=== PATIENT | female | born 1950 | race Caucasian/White ===

== ENCOUNTER → 2019-05-04 16:06 | Outpatient (CLI) | payer OTHER, SELFPAY ==
--- NOTE | ~2019-05-04 | MM_ITS ---
EXAMINATION: MM screening cris BI w mich HISTORY: Screening mammogram TECHNIQUE: Craniocaudal and mediolateral oblique 3-D tomosynthesis images were obtained and synthetic 2-D images were generated. CAD analysis was submitted and interpreted. COMPARISON: Comparison to multiple prior studies sequentially, with oldest reviewed study dated 10/2012. BREAST PARENCHYMAL COMPOSITION: The breasts are heterogeneously dense, which may obscure small masses . FINDINGS: There is no evidence of suspicious mass, calcification, or architectural distortion to sugg est malignancy in either breast. There has been no suspicious interval change. IMPRESSION: 1. No mammographic evidence of malignancy. 2. Recommend routine screening mammography in one year. BI-RADS Category 1: Negative Reviewed, dictated and finalized at location A. SEARCH MANAGER
== END ==
PROVIDERS: PCP Internal Medicine; Visit Provider Obstetrics & Gynecology
DX: Z12.31 Encounter for screening mammogram for malignant neoplasm of breast (principal)
CPT/HCPCS: 77063; 77067

== ENCOUNTER → 2020-07-04 15:41 | Outpatient (CLI) | payer OTHER, SELFPAY ==
--- NOTE | ~2020-07-04 | MM_ITS ---
EXAMINATION: MM screening cris BI w mich HISTORY: Screening mammogram TECHNIQUE: Craniocaudal and mediolateral oblique 3-D tomosynthesis images were obtained and synthetic 2-D images were generated. CAD analysis was submitted and interpreted. COMPARISON: 05/04/2019, 02/06/2018, 01/23/2017 bilateral digital screening mammogram examinations BREAST PARENCHYMAL COMPOSITION: The breasts are heterogeneously dense, which may obscure small masses . FINDINGS: There is no evidence of suspicious mass, calcification, or architectural distortion to sugg est malignancy in either breast. There has been no suspicious interval change. IMPRESSION: 1. No mammographic evidence of malignancy. 2. Recommend routine screening mammography in one year. BI-RADS Category 1: Negative Reviewed, dictated and finalized at location A.
== END ==
PROVIDERS: Visit Provider Obstetrics & Gynecology
DX: Z12.31 Encounter for screening mammogram for malignant neoplasm of breast (principal)
CPT/HCPCS: 77063; 77067

== ENCOUNTER → 2021-07-19 09:21 | Outpatient (CLI) | payer MEDICARE, SELFPAY ==
--- NOTE | ~2021-07-19 | MM_ITS ---
EXAMINATION: MM screening cris BI w mich HISTORY: Screening TECHNIQUE: Craniocaudal and mediolateral oblique 3-D tomosynthesis images were obtained and synthetic 2-D images were generated. CAD analysis was submitted and interpreted. COMPARISON: Comparison to multiple prior studies sequentially, with oldest reviewed study dated 04/2014. BREAST PARENCHYMAL COMPOSITION: The breasts are heterogenously dense, which may obscure small masses FINDINGS: There is no evidence of suspicious mass, calcification, or architectural distortion to sugg est malignancy in either breast. There has been no suspicious interval change. IMPRESSION: 1. No mammographic evidence of malignancy. 2. Recommend routine screening mammography in one year. BI-RADS Category 1: Negative Reviewed, dictated and finalized at location A.
== END ==
PROVIDERS: PCP Internal Medicine; Visit Provider Obstetrics & Gynecology
DX: Z12.31 Encounter for screening mammogram for malignant neoplasm of breast (principal)
CPT/HCPCS: 77063; 77067

== ENCOUNTER 2022-07-17 10:58 | Emergency (ER) | payer MEDICARE, SELFPAY ==
[2022-07-17 11:06] VITALS: BP 157/79; PULSE 98; RESP 16; TEMP 36.7; O2SAT 98
--- NOTE | 2022-07-17 11:06 | ED.ABDPAIN ---
HPI - Abdominal Pain General Chief Complaint: Abdominal Pain Stated Complaint: abdominal pain, nausea Time Seen by Provider: 07/17/22 11:06 Source: patient and RN notes reviewed History of Present Illness HPI narrative: Patient is a 71-year-old female presents to urgent care with complaints of left flank pain radiating to the abdomen. Patient has also had a few bouts of nausea without vomiting. Denies any fever. Denies any urinary symptoms. Patient states that approximately 5 years ago she had a bout of diverticulitis and she has also had a history of UTIs. No other acute complaints. No acute distress noted. Patient aware of the plan of care. Some parts of this dictation were generated by voice recognition software and may contain typographical and/or grammatical inaccuracies. Related Data Home Medications Medication Instructions Recorded Confirmed multivitamin with minerals 1 tablet PO DAILY 02/12/22 (Hair,Skin and Nails tablet) vitamin K2 (MK-4) 100 mcg tablet mcg PO 02/12/22 Allergies Allergy/AdvReac Type Severity Reaction Status Date / Time No Known Drug Allergies Allergy Unknown Unknown Verified 07/17/22 10:59 Review of Systems Review of Systems: CONSTITUTIONAL: Denies fever, chills, or sweats. EYES: Denies visual changes, redness, or discharge. ENT: Denies rhinorrhea, congestion, sore throat, or otalgia. CARDIOVASCULAR: Denies chest pain, palpitations, or edema. RESPIRATORY: Denies cough or dyspnea. GASTROINTESTINAL: Reports of left abdominal discomfort and nausea GENITOURINARY: Denies dysuria or hematuria. SKIN: Denies rash or itching. MUSCULOSKELETAL: Reports of left flank pain NEUROLOGIC: Denies headache, numbness, or weakness. All other systems reviewed are negative, except as documented in HPI. [facility] Past Medical History Medical History (Updated 07/17/22 @ 11:33 by NA Grossman) Anxiety Depression Diverticulitis Former smoker, stopped smoking in distant past History of smoking 30 or more pack years Hyperlipidemia Hypervitaminosis D Hypothyroid Osteoporosis Pleurisy Polio Surgical History Surgical History H/O total hysterectomy Family History Family History Father Family history of cardiovascular disease Family history of chronic obstructive pulmonary disease Family history of heart disease in male family member before age 55 Mother Cerebrovascular accident Sibling Depression Family history of alcoholism Social History Social History (Updated 02/12/22 @ 09:51 by Rozina Dunham [facility]) Smoking status: Former smoker Smoking end date: 03/11/12 Alcohol intake: current Alcohol use details: rarely Lack of Transportation: No Lack of Food: Never True Current Housing: I Have Housing Concerned About Future Housing: No Difficulty Paying Gas/Electric Bills: No Difficulty Paying for Meds: No Currently Unemployed: No Education: High School Diploma/GED Difficulty w/ Childcare or Family Care: No Comments At the time of my signature, I reviewed and agree with the nursing past medical, surgical, social, and family history. There is no relevant family history pertinent to the patient complaint. Exam Narrative: GENERAL: This is a well-nourished, well-developed patient, in no apparent distress. HEAD: normocephalic, atraumatic. EYES: PERRL. Sclera clear/white. Vision is grossly intact. EARS: External ears normal NOSE: External nose normal with no obvious nasal discharge, nares without redness, no rhinorrhea. THROAT: Mucous membranes moist NECK: Neck supple GASTROINTESTINAL: Abdomen soft, tender left upper quadrant, nondistended. Bowel sounds are hyperactive. SKIN: warm, intact with no suspicious lesions or rash, good texture and turgor. NEURO: awake, alert, and oriented to person, place and time. There were no obvious focal neurologic
[2022-07-17 11:09] VITALS: BP 157/79; PULSE 98; RESP 16; TEMP 36.7; O2SAT 98
== END 2022-07-17 11:36 | disposition home or self-care (01) ==
PROVIDERS: Emergency Provider Nurse Practitioner Family; PCP Nurse Practitioner
DX: N39.0 Urinary tract infection, site not specified (principal); Z87.19 Personal history of other diseases of the digestive system; Z87.891 Personal history of nicotine dependence; E78.5 Hyperlipidemia, unspecified; E03.9 Hypothyroidism, unspecified; M81.0 Age-related osteoporosis without current pathological fracture; Z90.710 Acquired absence of both cervix and uterus
CPT/HCPCS: 81003; 87077; 87086; 87186; 99213; G0463

== ENCOUNTER 2022-07-18 07:32 | Emergency (ER) | payer MEDICARE, SELFPAY ==
--- NOTE | ~2022-07-18 | CT_ITS ---
CT of the Abdomen and Pelvis: Indication: Abdominal pain Technique: 2.5 mm axial scans were obtained through the abdomen and pelvis following intravenous adm inistration of 100 cc of Omnipaque 350. Dose reduction technique was used on this scan by utilizing a utomated exposure control and iterative reconstruction technique. The dose-length product (DLP) was 2 75.30 mGy-cm. COMPARISON: 11/28/2016 Findings: Scans through the lung bases demonstrates stable pleural-based nodule at the left lung bas e. The liver, spleen, pancreas, gallbladder, adrenals and. Right kidney are within normal limits. There is a 2-3 mm stone at the proximal left ureter (axial image 77), with mild left hydronephrosis. There are atherosclerotic calcifications of the aorta. No lymphadenopathy. No bowel obstruction or bowel wall thickening. There is no evidence to suggest acute appendicitis. Th ere is marked asymmetric unilateral atrophy of the left psoas major muscle, left gluteal musculature, and visualized proximal left thigh musculature. Images through the pelvis were performed. Urinary bladder unremarkable. No pelvic mass seen. Impression: 2-3 mm proximal left ureteral stone, with mild left hydronephrosis. Chronic unilateral atrophy of the left psoas major muscle, left gluteal musculature and proximal left thigh musculature, similar to prior exam. Correlate with any relevant clinical history. Reviewed, dictated and finalized at [facility]. Impression: 2-3 mm proximal left ureteral stone, with mild left hydronephrosis. Chronic unilateral atrophy of the left psoas major muscle, left gluteal muscula ture and proximal left thigh musculature, similar to prior exam. Correlate with any relevant clinical history.
--- NOTE | ~2022-07-18 | XR_ITS ---
XR abdomen/kub 1V 07/18/2022 08:50 INDICATION: Left-sided kidney stone TECHNIQUE: KUB COMPARISON: None FINDINGS: Bowel gas pattern is normal. There is no evidence of free air, mass, organomegaly, ascites or obstruction. No abnormal calculi are seen. The bones appear intact. There is residual contrast in the kidneys and renal collecting systems. There is left hydronephrosis. Kidneys and expected cours e of the ureters are obscured by overlying bowel content. IMPRESSION: 1: Left hydronephrosis.. Reviewed, dictated and finalized at location B. IMPRESSION: 1: Left hydronephrosis..
[2022-07-18 07:40] VITALS: BP 156/94; PULSE 90; RESP 16; TEMP 36.8; O2SAT 97
[2022-07-18] MEDS: ONDANSETRON INJ 4 MG/2 ML VIAL IV PUSH (08:06)
[2022-07-18] MEDS: MORPHINE SULFATE (*CRX) 4 MG/ML INJ IV PUSH (08:06)
[2022-07-18 08:23] LABS: Estimated CRCL calculation 42 ml/min; Estimated Glomerular Filt Rate > 60
--- NOTE | 2022-07-18 08:29 | ED.ABDPAIN ---
HPI - Abdominal Pain General Chief Complaint: Abdominal Pain Stated Complaint: abd pain Time Seen by Provider: 07/18/22 07:39 History of Present Illness HPI narrative: Patient is a 71-year-old female who presents ER with left-sided mid abdominal pain. Began yesterday. Aching. Mild radiation to the back. Associate with nausea. No diarrhea or constipation. Has history of diverticulitis. Was seen in urgent care and diagnosed with UTI and placed on Macrobid. Denies fevers or chills or sweats. Symptoms or not improving so she came in for further evaluation. Related Data Home Medications Medication Instructions Recorded Confirmed multivitamin with minerals 1 tablet PO DAILY 02/12/22 (Hair,Skin and Nails tablet) vitamin K2 (MK-4) 100 mcg tablet mcg PO 02/12/22 Allergies Allergy/AdvReac Type Severity Reaction Status Date / Time No Known Drug Allergies Allergy Unknown Unknown Verified 07/18/22 07:44 Review of Systems Review of Systems: All systems reviewed & are unremarkable except as noted in HPI and below Constitutional: Constitutional: Denies chills, Denies fatigue and Denies fever(s) Gastrointestinal: Gastrointestinal: Reports abdominal pain, Denies constipation, Denies diarrhea, Reports nausea and Denies vomiting Genitourinary: Genitourinary: Denies nocturia, Denies dysuria, Denies pelvic pain and Reports flank pain Musculoskeletal: Musculoskeletal: Denies back pain PMF Past Medical History Medical History (Updated 07/18/22 @ 10:20 by Sravan Callaway MD) Anxiety Depression Diverticulitis Former smoker, stopped smoking in distant past History of smoking 30 or more pack years Hyperlipidemia Hypervitaminosis D Hypothyroid Osteoporosis Pleurisy Polio Surgical History Surgical History H/O total hysterectomy Family History Family History Father Family history of cardiovascular disease Family history of chronic obstructive pulmonary disease Family history of heart disease in male family member before age 55 Mother Cerebrovascular accident Sibling Depression Family history of alcoholism Social History Social History (Updated 02/12/22 @ 09:51 by Rozina Dunham CMA) Smoking status: Former smoker Smoking end date: 03/11/12 Alcohol intake: current Alcohol use details: rarely Lack of Transportation: No Lack of Food: Never True Current Housing: I Have Housing Concerned About Future Housing: No Difficulty Paying Gas/Electric Bills: No Difficulty Paying for Meds: No Currently Unemployed: No Education: High School Diploma/GED Difficulty w/ Childcare or Family Care: No Exam Narrative: GENERAL: Well-appearing, well-nourished, and in no acute distress. HEAD: Normocephalic, atraumatic. ENT: Mucous membranes moist. CHEST: Clear to auscultation. No respiratory distress. HEART: Regular rate and rhythm. Normal peripheral pulses. ABDOMEN: Soft, left side mid abdominal tenderness with mild guarding, nondistended. EXTREMITIES: Normal range of motion. No edema. SKIN: Warm, dry, no rash. NEURO: Alert and oriented x3. PSYCH: Normal mood and affect. Course Course Emergency Course: Patient informed of the results. Discussed case with urology on-call. Patient may continue course of antibiotics but overall urine does not appear infected. Discussed return precautions with the patient and she verbalized understanding. Vital Signs Vital signs: Vital Signs Temperature 98.2 F 07/18/22 07:40 Pulse Rate 90 07/18/22 07:40 Respiratory Rate 16 07/18/22 07:40 Blood Pressure 156/94 H 07/18/22 07:40 Pulse Oximetry 97 07/18/22 07:40 Oxygen Delivery Room Air 07/18/22 07:40 Temperature 98.2 F 07/18/22 07:40 Pulse Rate 80 07/18/22 08:46 Respiratory Rate 16 07/18/22 08:46 Blood Pressure 149/75 H 07/18/22 08:46 Pulse Oximetry 96
[2022-07-18 08:31] LABS: Appearance Urine Turbid (Clear); Bacteria Urine 1+ /hpf; Basophils Absolute Auto 0.1 K/mm3 (0.0-0.1); Basophils Percent Auto 0.6 % (0.2-1.2); Bilirubin Urine Negative (Negative); Blood Urine 2+ (Negative); Color Urine Dark Yellow (Yellow); Eosinophils Absolute Auto 0.2 K/mm3 (0-0.3); Eosinophils Percent Auto 2.5 % (0-4.4); Glucose Urine UA Negative (Negative); Hematocrit 44.1 % (37.0-47.0); Hemoglobin 14.5 g/dL (12.0-15.0); Immature Granulocyte Absolute 0.02 K/mm3 (0.00-0.031); Immature Granulocyte Percent A 0.3 % (0-0.5); Ketones Urine Negative (Negative); Leukocyte Esterase Ur Negative LEU/UL (Negative); Lymphocytes Percent Auto 17.5 % (18.3-44.2); Mean Corpuscular HGB Conc 32.9 g/dl (32-36); Mean Corpuscular Hemoglobin 30.3 pg (26-34); Mean Corpuscular Volume 92.3 fl (80-100); Monocytes Absolute Auto 0.8 K/mm3 (0.1-0.6); Monocytes Percent Auto 10.3 % (2.6-8.5); Neutrophils Absolute Auto 5.5 K/mm3 (1.3-6.7); Neutrophils Percent Auto 68.8 % (45.5-73.1); Nitrate Urine Negative (Negative); Non Pathogenic Casts 0-2; Platelet Count Result 293 k/mm3 (150-375); Protein Urine Negative (Negative); RBC Urine 51-100 /hpf (0-2); Red Blood Count 4.78 M/mm3 (4.2-5.4); Red Cell Distribution Width 13.2 % (11.5-14.5); Specific Grav Ur 1.018 (1.001-1.035); Squamous Epithelial Cell Urine Few /hpf (Few); Urobilinogen Urine 0.2 mg/dL (<2.0); pH Urine 7.5 (5.0-9.0)
[2022-07-18 08:34] LABS: Alanine Aminotransferase 30 U/L (6-35); Albumin Level 4.4 g/dL (3.5-5.1); Alkaline Phosphatase 53 U/L (38-126); Anion Gap 7 mmol/L (8-16); Aspartate Amino Transferase 32 U/L (14-36); Bilirubin,Total 0.9 mg/dL (0.2-1.3); Blood Urea Nitrogen 15 mg/dL (7-17); Calcium 9.4 mg/dL (8.4-10.2); Carbon Dioxide 29 mmol/L (22-30); Chloride 103 mmol/L (98-107); Estimated CRCL calculation 48 ml/min; Estimated Glomerular Filt Rate > 60; Glucose 105 mg/dL (65-110); Potassium 3.8 mmol/L (3.4-5.0); Sodium 139 mmol/L (137-145)
[2022-07-18 08:41] LABS: Add Urine Microscopic? YES
[2022-07-18 08:46] VITALS: BP 149/75; PULSE 80; RESP 16; O2SAT 96
[2022-07-18 10:17] VITALS: PULSE 70; RESP 13; O2SAT 93
[2022-07-18 10:37] VITALS: BP 135/71; PULSE 72; RESP 23; O2SAT 93
== END 2022-07-18 10:39 | disposition home or self-care (01) ==
PROVIDERS: Emergency Provider Emergency Medicine; PCP Nurse Practitioner
DX: N13.2 Hydronephrosis with renal and ureteral calculous obstruction (principal); E78.5 Hyperlipidemia, unspecified; E03.9 Hypothyroidism, unspecified; E67.3 Hypervitaminosis D; M81.0 Age-related osteoporosis without current pathological fracture; Z86.12 Personal history of poliomyelitis; Z87.891 Personal history of nicotine dependence; Z90.710 Acquired absence of both cervix and uterus; M62.552 Muscle wasting and atrophy, not elsewhere classified, left thigh
CPT/HCPCS: 36415; 74018; 74177; 80053; 81001; 85025; 96374; 96375; 99284; J2270; J2405; Q9967

== ENCOUNTER 2023-02-06 09:17 | Outpatient (CLI) | payer MEDICARE, SELFPAY ==
[2023-02-06 14:20] LABS: Basophils Absolute Auto 0.1 K/mm3 (0.0-0.1); Basophils Percent Auto 0.8 % (0.2-1.2); Eosinophils Absolute Auto 0.2 K/mm3 (0-0.3); Eosinophils Percent Auto 2.6 % (0-4.4); Hematocrit 47.8 % (37.0-47.0); Immature Granulocyte Absolute 0.08 K/mm3 (0.00-0.031); Immature Granulocyte Percent A 0.9 % (0-0.5); Lymphocytes Absolute Auto 1.03 K/mm3 (0.9-3.2); Lymphocytes Percent Auto 12.1 % (18.3-44.2); Mean Corpuscular HGB Conc 31.4 g/dl (32-36); Mean Corpuscular Hemoglobin 29.8 pg (26-34); Mean Platelet Volume 8.8 fl (7.4-10.4); Monocytes Absolute Auto 1.1 K/mm3 (0.1-0.6); Monocytes Percent Auto 12.9 % (2.6-8.5); Neutrophils Percent Auto 70.7 % (45.5-73.1); Platelet Count Result 294 k/mm3 (150-375); Red Blood Count 5.03 M/mm3 (4.2-5.4); Red Cell Distribution Width 12.9 % (11.5-14.5); White Blood Count 8.5 K/mm3 (4.5-10.0)
[2023-02-06 14:37] LABS: Alanine Aminotransferase 26 U/L (6-35); Albumin Level 4.6 g/dL (3.5-5.1); Alkaline Phosphatase 77 U/L (38-126); Anion Gap 10 mmol/L (8-16); Aspartate Amino Transferase 34 U/L (14-36); Bilirubin,Total 1.1 mg/dL (0.2-1.3); Blood Urea Nitrogen 16 mg/dL (7-17); Calcium 9.8 mg/dL (8.4-10.2); Carbon Dioxide 30 mmol/L (22-30); Chloride 99 mmol/L (98-107); Cholesterol 201 mg/dL (0-200); Estimated Glomerular Filt Rate > 60; Glucose 104 mg/dL (65-110); HDL Direct 55 mg/dL; Potassium 4.1 mmol/L (3.4-5.0); Sodium 139 mmol/L (137-145); Triglycerides 155 mg/dL (<150)
[2023-02-06 14:56] LABS: LDL Cholesterol Direct 100 mg/dL
[2023-02-06 14:59] LABS: Vitamin D 25 Hydroxy 53.7 ng/mL
== END 2023-02-06 09:18 | disposition home or self-care (01) ==
LOC: ANHGOSHLAB 09:19
PROVIDERS: PCP Internal Medicine; Visit Provider Nurse Practitioner
DX: E78.2 Mixed hyperlipidemia (principal); E55.9 Vitamin D deficiency, unspecified; Z13.220 Encounter for screening for lipoid disorders; Z13.29 Encounter for screening for other suspected endocrine disorder
CPT/HCPCS: 36415; 80053; 80061; 82306; 85025

== ENCOUNTER 2023-08-29 09:46 | Outpatient (CLI) | payer MEDICARE, SELFPAY ==
--- NOTE | ~2023-08-29 | MM_ITS ---
EXAMINATION: MM screening cris BI w mich HISTORY: Screening TECHNIQUE: Craniocaudal and mediolateral oblique 3-D tomosynthesis images were obtained and synthetic 2-D images were generated. CAD analysis was submitted and interpreted. COMPARISON: Comparison to multiple prior studies sequentially, with oldest reviewed study dated 01/09. BREAST PARENCHYMAL COMPOSITION: Dense: The breasts are heterogeneously dense, which may obscure small masses FINDINGS: There is no evidence of suspicious mass, calcification, or architectural distortion to sugg est malignancy in either breast. There has been no suspicious interval change. IMPRESSION: 1. No mammographic evidence of malignancy. 2. Recommend routine screening mammography in one year. BI-RADS Category 1: Negative Reviewed, dictated and finalized at location B.
== END 2023-08-29 09:47 ==
PROVIDERS: PCP Internal Medicine; Visit Provider Obstetrics & Gynecology
DX: Z12.31 Encounter for screening mammogram for malignant neoplasm of breast (principal)
CPT/HCPCS: 77063; 77067

== ENCOUNTER 2024-02-13 08:49 | Outpatient (CLI) | payer MEDICARE, SELFPAY ==
[2024-02-13 12:40] LABS: Basophils Percent Auto 0.6 % (0.2-1.2); Eosinophils Absolute Auto 0.3 K/mm3 (0-0.3); Eosinophils Percent Auto 3.7 % (0-4.4); Hematocrit 47.4 % (37.0-47.0); Immature Granulocyte Absolute 0.01 K/mm3 (0.00-0.031); Immature Granulocyte Percent A 0.1 % (0-0.5); Lymphocytes Absolute Auto 1.93 K/mm3 (0.9-3.2); Lymphocytes Percent Auto 28.3 % (18.3-44.2); Mean Corpuscular HGB Conc 31.6 g/dl (32-36); Mean Corpuscular Hemoglobin 30.2 pg (26-34); Mean Corpuscular Volume 95.6 fl (80-100); Mean Platelet Volume 9.1 fl (7.4-10.4); Monocytes Absolute Auto 0.7 K/mm3 (0.1-0.6); Monocytes Percent Auto 10.3 % (2.6-8.5); Neutrophils Absolute Auto 3.9 K/mm3 (1.3-6.7); Platelet Count Result 298 k/mm3 (150-375); Red Blood Count 4.96 M/mm3 (4.2-5.4); Red Cell Distribution Width 12.8 % (11.5-14.5); White Blood Count 6.8 K/mm3 (4.5-10.0)
[2024-02-13 12:57] LABS: Alanine Aminotransferase 23 U/L (6-35); Albumin Level 4.5 g/dL (3.5-5.1); Alkaline Phosphatase 60 U/L (38-126); Anion Gap 5 mmol/L (4-12); Aspartate Amino Transferase 57 U/L (14-36); Bilirubin,Total 0.8 mg/dL (0.2-1.3); Blood Urea Nitrogen 16 mg/dL (7-17); Calcium 9.3 mg/dL (8.4-10.2); Carbon Dioxide 33 mmol/L (22-30); Chloride 104 mmol/L (98-107); Cholesterol 208 mg/dL (0-200); Estimated Glomerular Filt Rate > 60; Glucose 100 mg/dL (65-110); HDL Direct 59 mg/dL; Potassium 3.9 mmol/L (3.4-5.0); Sodium 142 mmol/L (137-145); Triglycerides 173 mg/dL (<150)
[2024-02-13 13:09] LABS: LDL Cholesterol Direct 91 mg/dL
[2024-02-13 13:19] LABS: Vitamin D 25 Hydroxy 53.7 ng/mL
== END 2024-02-13 08:50 | disposition home or self-care (01) ==
PROVIDERS: PCP Internal Medicine; Visit Provider Nurse Practitioner
DX: E78.5 Hyperlipidemia, unspecified (principal); E03.9 Hypothyroidism, unspecified; E55.9 Vitamin D deficiency, unspecified; F41.9 Anxiety disorder, unspecified; Z13.29 Encounter for screening for other suspected endocrine disorder
CPT/HCPCS: 36415; 80053; 80061; 82306; 84443; 85025

== ENCOUNTER 2024-11-18 12:45 | Outpatient (CLI) | payer MEDICARE, SELFPAY ==
--- NOTE | ~2024-11-18 | DEXA_ITS ---
Bone Density Report Name: ASHLEY ROBBINS Age: 74 Sex: Female Ethnicity: White Date of : 1950 Indication: osteopenia; monitoring treatment; hysterectomy; Referring Provider: SAMRA COOK Study: Bone densitometry was performed. Exam Date: November 18, 2024 Accession number: [id number] Bone Density: Region BMD T-score Z-score Classification AP Spine(L1-L4) 1.166 1.1 3.4 Normal Femoral Neck (Left) 0.693 -1.4 0.6 Osteopenia Total Hip (Left) 0.659 -2.3 -0.6 Osteopenia Femoral Neck (Right) 0.594 -2.3 -0.3 Osteopenia Total Hip (Right) 0.748 -1.6 0.1 Osteopenia Total Hip Mean 0.703 -2.0 -0.3 Osteopenia World Health Organization criteria for BMD impression classify patients as: Normal (T-score at or above -1.0), Osteopenia (T-score between -1.0 and -2.5), or Osteoporosis (T-score at or below -2.5). 10-year Fracture Risk: FRAX not reported because: Treated for osteoporosis Previous Exams: -- Region Exam Age BMD T-score BMD Change BMD Change Date g/cm2 vs Baseline vs Previous -- AP Spine (L1-L4) 11/18/2024 74 1.166 1.1 3.8%* 3.8%* 08/14/2022 71 1.124 0.7 Total Hip(Left) 11/18/2024 74 0.659 -2.3 1.8% 1.8% 08/14/2022 71 0.647 -2.4 Total Hip(Right) 11/18/2024 74 0.748 -1.6 -0.8% -0.8% 08/14/2022 71 0.754 -1.5 -- *Denotes significance at 95% confidence level, LSC for AP Spine = 0.022 g/cm2, LSC for Total Hip = 0.027 g/cm2 Clinical Information Provided by Patient: Is being treated for osteoporosis Has used the following medications: Fosamax (i.e. alendronate), Reclast (i.e. zoledronate), Prolia (i.e. denosumab), Calcium Has the following medical conditions: Hysterectomy Patient maximum height was 61 Menopause Age: 50 No regular weight bearing exercise Drinks caffeinated beverages Onset of menses at age 13 Number of children 2 Impression: The patient has low bone mass, based on the Left Total Hip T-score. No significant bone loss was observed. Discussion: PATIENT UNDER TREATMENT WITH NO SIGNIFICANT BMD LOSS SINCE LAST EXAM. In an untreated patient, BMD typically declines with age. A lack of decline or gain is usually a sign that treatment is efficacious and fracture risk is reduced. It is important to ask patients whether they are taking their medications and to encourage continued and appropriate compliance with their osteoporosis therapies to reduce fracture risk. It is also important to review their risk factors and encourage appropriate calcium and vitamin D intakes, exercise, fall prevention and other lifestyle measures. Follow-Up: Consider a repeat BMD and Vertebral Fracture Assessment (VFA) exam in 2 years or sooner if medically necessary, to reassess this patient's status. Reported by: NAYAN on 11/18/2024 1:25:00 PM. Reviewed, dictated and finalized at location A.
--- NOTE | ~2024-11-18 | MM_ITS ---
EXAMINATION: MM screening cris BI w mich HISTORY: Screening TECHNIQUE: Craniocaudal and mediolateral oblique 3-D tomosynthesis images were obtained and synthetic 2-D images were generated. CAD analysis was submitted and interpreted. COMPARISON: Comparison to multiple prior studies sequentially, with oldest reviewed study dated , 02/06/2018 BREAST PARENCHYMAL COMPOSITION: The breasts are heterogeneously dense, which may obscure small masses. FINDINGS: There is no evidence of suspicious mass, calcification, or architectural distortion to suggest malignancy in either breast. IMPRESSION: 1. No mammographic evidence of malignancy. 2. Recommend routine screening mammography in one year. BI-RADS Category 1: Negative Reviewed, dictated and finalized at location B.
== END 2024-11-18 12:46 | disposition home or self-care (01) ==
LOC: MICIMG 12:46
PROVIDERS: PCP Internal Medicine; Visit Provider Nurse Practitioner
DX: Z12.31 Encounter for screening mammogram for malignant neoplasm of breast (principal); Z78.0 Asymptomatic menopausal state; M85.852 Other specified disorders of bone density and structure, left thigh; M85.851 Other specified disorders of bone density and structure, right thigh
CPT/HCPCS: 77063; 77067; 77080

== ENCOUNTER 2025-01-08 00:49 | Day surgery (SDC) | payer MEDICARE, SELFPAY ==
--- OUTSIDE RECORDS SUMMARY | 2006-11-08 05:54 | XMS_ITS | Continuity of Care Document ---
Author Organization [facility] Address [address] [place] [address] Phone Care Team Providers Care Fruit Express Agent Name Role Phone Christianson OD, Chandra Unavailable Unavailable Procedures Procedure Date Office/outpatient Visit, [facility] Advance Directives Directive Yes / No Effective Date File Name No Information Encounters Encounter Description Practice Location Reason(s) For Visit Diagnoses Date Provider Providers Copied on Encounter Office/outpat ient Visit, [facility], [address] [place] [address] [address], [place], [place], [id number], [place] tel:[phone] SEC [facility] No Information 1-200 7 Christianson OD Chandra. [address] , [address], [place], [address], [place]. tel:[phone] Family History Family Member Type Diagnosis Age At Onset No Information Payers Payer name Insurance type Covered alliance party ID Authoriza tion(s) [place] [id number] Social History Type Description Quantity Date Captured Comments Sex Female Smoking Status No Information Chief Complaint And Reason For Visit No Information Reason For Referral Reason For Referral No Information History Of Present Illness Encounter Date Complaint History Of Prese nt Illness No Information Functional Status Date Functional Assessmen t No Information Instructions Date Instruction Additional Infor mation No Information Assessments Type Assessment Date No Information Patient Care Teams Name Effective Dates (start - stop) Status Members No Information
[2024-12-28 14:31] VITALS: BMI 24.5
--- OUTSIDE RECORDS SUMMARY | 2025-01-08 00:51 | XMS_ITS | Clinical Summary ---
Author Organization [facility] [employer] Address [address] [place] [address] Care Team Providers Care Hospital Medicine Director Name Role Phone Derrell Knox DO Primary Care Provider [phone] Source Comments [facility] [employer],non-owned Affiliates and Associated Physician Practices is amultiple site organization consisting of ambulatory clinics and hospital sitesin [place], [place], [place] and [place]. This disclosure is being madepursuant to the Care Everywhere program and may not contain all information available regarding this patient. Last updated 17.[facility] [employer] Allergies No known active allergies Medications * Be aware that medications may not be up to date on this document. Alwaysverify current medications with the patient. Levothyroxine Sodium (SYNTHROID PO) Activ e escitalopram (LEXAPRO) 5 MG tablet Take 5 mg by mouth once daily Active abaloparatide (TYMLOS) 3120 MCG/1.56ML injection Inject 80 mcg subcutaneously once daily Active CALCIUM PO Active VITAMIN D PO Active Active Problems Problem Noted Date Diagnosed Date DJD (degenerative joint disease) 11/15/2021 Social History Tobacco Use Types Packs/Day Years Used Date Smoking Tobacco: Never Smokeless Tobacco: Never Comments Unknown Sex and Gender Information Value Date Recorded Sex Assigned at Not on file Legal Sex Female 3:55 PM COMBAT CONTROL MANAGER Gender Identity Not on file Sexual Orientation Not on file Last Filed Vital Signs Vital Sign Reading Time Taken Comments Blood Pressure 118/62 04/03/2019 4:33 PM COMBAT CONTROL MANAGER Pulse 86 04/03/2019 4:33 PM COMBAT CONTROL MANAGER Temperature 36.8 C (98.2 F) 04/03/2019 4:33 PM COMBAT CONTROL MANAGER Respiratory Rate 20 04/03/2019 4:33 PM COMBAT CONTROL MANAGER Oxygen Saturation 98% 04/03/2019 4:33 PM COMBAT CONTROL MANAGER Inhaled Oxygen Concentration - - Weight 59 kg (130 lb) 11/14/2021 2:39 PM CDT Height 154.9 cm (5' 1) 11/14/2021 2:39 PM CDT Body Mass Index 24.56 11/14/2021 2:39 PM CDT Plan of Treatment Health Maintenance Due Date Last Done Comments BONE DENSITY TESTING 1950 COLOGUARD (AGES 45-75) - COL ON CA SCREENING 1950 COLON MONITORING 1950 COLONOSCOPY - COLON CA SCREENING 1950 CT COLONOGRAPHY - COLON CA SCREENING 1950 Colorectal Cancer Screening 1950 FIT - COLON CA SCREENING 1950 FLEX SIG - COLON CA SCREENING 1950 LIPID TESTING 1950 MAMMOGRAM 1950 HEPATITIS C SCREENING 09/20/1968 DTAP/TDAP/TD VACCINES (1 - Tdap) 1969 PNEUMOCOCCAL VACCINE 50+ (1 of 1 - PCV) 2000 ZOSTER VACCINE (1 of 2) 2000 DEPRESSION SCREENING 03/11/2024 COVID-19 VACCINE (1 - 2023-2 5 season) 2024 INFLUENZA VACCINE (#1) 2024 Respiratory Syncytial Virus (RSV) Vaccine Pt: or over 60 yrs (1 - 1-dose 75+ series) 2025 HEPATITIS B VACCINE Aged Out No longe r eligible based on patient's age to complete this topic HIB VACCINE Aged Out No longer eligi ble based on patient's age to complete this topic HPV VACCINE Aged Out No longer eligi ble based on patient's age to complete this topic MENINGOCOCCAL (Group B) VACC INE SHARED DECISION-MAKING Aged Out No longer eligibl e based on patient's age to complete this topic MENINGOCOCCAL GROUPS A/C/Y/W VACCINE Aged Out No longer eligible b ased on patient's age to complete this topic Insurance MEDICARE [facility] Care Teams Hospital Medicine Director Relationship Specialty Start Date End Date Derrell Knox DO PCP - General Internal Medicine 11/14/21
--- OUTSIDE RECORDS SUMMARY | 2025-01-08 00:51 | XMS_ITS | Encounter Summary ---
Author Organization [facility] Address [address] [place] [address] Care Team Providers Care Foreign Clerk Name Role Phone Unknown, Notinfile Primary Care Provider Unavail able Unknown, Notinfile Unavailable Unavailable Encounter Details Date Type Department Care Team (Late st Contact Info) Description 11/17/2024 Results Follow-Up [facility] [place] [address] [place] [id number] Radha Garza, BANDAR [address] [facility] [facility] [address] [place], [place] [id number] Urine culture Urine, clean voided Social History Tobacco Use Types Packs/Day Years Used Date Smoking Tobacco: Never Assessed Comments Unknown Sex and Gender Information Value Date Recorded Sex Assigned at Not on file Legal Sex Female 11:38 PM ENGINEERING COORDINATOR Gender Identity Not on file Sexual Orientation Not on file documented as of this encounter Miscellaneous Notes * Result Encounter Note - Elmira Elliott LPN - 11/17/2024 9:25 AM CDT Notified pt of their results and follow up instructions. Pt verbalized understanding. documented in this encounter Plan of Treatment Not on file documented as of this encounter Visit Diagnoses Not on filedocumented in this encounter Care Teams Foreign Clerk Relationship Specialty Start Date End Date Unknown, Notinfile PCP - General 11/15/24 Unknown, Notinfile 11/15/24 documented as of this encounter
--- OUTSIDE RECORDS SUMMARY | 2025-01-08 00:51 | XMS_ITS | Encounter Summary ---
Author Organization [facility] Healthcare Address [address] [place] [address] Care Team Providers Care Diesel Powerplant Mechanic Name Role Phone Unknown, Notinfile Primary Care Provider Unavail able Unknown, Notinfile Unavailable Unavailable Encounter Details Date Type Department Care Team (Late st Contact Info) Description 12/03/2024 Results Follow-Up [facility] [place] [address] [place] [address] Christina Ambrose NP [address] 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 Gender Identity Not on file Sexual Orientation Not on file documented as of this encounter Ordered Prescriptions Prescription Sig Dispense Quantity Refills Last Filled Start Date End Date amoxicillin-clavul anate (AUGMENTIN) 875-125 mg per tablet Take 1 tablet by mouth 2 (two) times a day for 7 days 14 tablet 12/03/2024 12/10/2024 documented in this encounter Plan of Treatment Not on file documented as of this encounter Visit Diagnoses Not on filedocumented in this encounter Care Teams Diesel Powerplant Mechanic Relationship Specialty Start Date End Date Unknown, Notinfile PCP - General 11/15/24 Unknown, Notinfile 11/15/24 documented as of this encounter
--- OUTSIDE RECORDS SUMMARY | 2025-01-08 00:51 | XMS_ITS | Clinical Summary ---
Author Organization [place] [address] [address] Address [address] [place] [address] Care Team Providers Care Accounts Payable Accountant Name Role Phone Unknown, Notinfile Primary Care Provider Unavail able Unknown, Notinfile Unavailable Unavailable Allergies No known active allergies Medications benzonatate (TESSALON) 200 mg capsuleIndicati ons:Acute cough Take 1 capsule (200 mg total) by mouth 3 (three) times a day as needed for cough keep tessalon out of reach of children, especially children under the age of 10, due to possible serious risk such as if ingested by children under the age of 10. 30 capsule 5 Active albuterol HFA (PROVENTIL HFA,VENTOLIN HFA,PROAIR HFA) 90 mcg/actuation inhalerIndicati ons:Wheezing Inhale 2 puffs every 6 (six) hours as needed for wheezing 1 each 5 12/04/19 26 Active levothyroxine (SYNTHROID) 75 mcg tablet Take 1 tablet (75 mcg total) by mouth 5 Active escitalopram (LEXAPRO) 10 mg tablet Take 1 tablet (10 mg total) by mouth daily 5 Active triamcinolone (KENALOG) 0.1 % cream Apply to affected area 1-2 times daily as needed. Avoid face and groin. 30 g 5 Active amoxicillin-cla vulanate (AUGMENTIN) 875-125 mg per tablet Take 1 tablet by mouth 2 (two) times a day for 7 days 14 tablet 5 12/11/19 25 Active Problems No known active problems Encounters Date Type Department Care Team Description 12/03/2024 9:45 AM CDT Ancillary Procedure [facility] Imaging at [address] [phone] Acute cough 12/03/2024 9:45 AM CDT Office Visit [facility] at [address] [phone] Christina Ambrose NP Wheezing (Primary Dx); Acute cough; Acute lower respiratory infection; Tachycardia 12/03/2024 Results Follow-Up [facility] at [address] [phone] Christina Ambrose NP XR Chest PA Lateral 2 Views 11/17/2024 Results Follow-Up [facility] at [address] [phone] Radha Garza NP Urine culture Urine, clean voided 11/15/2024 5:38 PM CDT - 11/15/2024 11:59 PM CDT Hospital Encounter [address] [address] Acute cystitis with hematuria Discharge Disposition: Discharge to home or self care 11/15/2024 11:15 AM CDT Office Visit [facility] at [address] [phone] Lilia Pan PA Acute cystitis with hematuria (Primary Dx); Rash from Last 3 Months Family History Medical History Relation Name Comments Heart disease Other 1 Family history of cardiac disorder - (Added by TW Conv) Arthritis Other 2 Family history of arthritis - (Added by TW Conv) Stroke Other 3 Family history of cerebrovascular accident (CVA) - (Added by TW Conv) Relation Name Status Comments Other 1 Other 2 Other 3 Social History Tobacco Use Types Packs/Day Years Used Date Smoking Tobacco: Former Comments Unknown Sex and Gender Information Value Date Recorded Sex Assigned at Not on file 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 Gender Identity Not on file Sexual Orientation Not on file Obstetrics History Last Filed Vital Signs Vital Sign Reading Time Taken Comments Blood Pressure 129/79 12/03/2024 9:30 AM CDT Pulse 101 12/03/2024 9:43 AM CDT Temperature 36.8 C (98.3 F) 12/03/2024 9:30 AM CDT Respiratory Rate 24 12/03/2024 9:30 AM CDT Oxygen Saturation 94% 12/03/2024 9:43 AM CDT Inhaled Oxygen Concentration - - Weight 61.2 kg (135 lb) 12/03/2024 9:30 AM CDT Height 154.9 cm (5' 1) 12/03/2024 9:30 AM CDT Body Mass Index 25.51 12/03/2024 9:30 AM CDT Plan of Treatment Health Maintenance Due Date Last Done Comments Breast Cancer Screening-Mammogram 1950 Colon Cancer Screening-Colonoscopy 1950 Depression Screening 1950 Fall Risk Assessment 1950 Hepatitis C Screening 1950 Osteoporosis Screening-Bone Density Scan 1950 Hepatitis B Screening 1968 Well Visit 65+ 09/26/2015 Zoster Vaccine (2 of 2) 03/07/2020 01/11/2020 Covid-19 Vaccine (4 - 2024-2 6 season) 2024 01/06/2021, 06/02/2020, 05/12/2020 Influenza Vaccine (#1) 2024 , 02/05/2023, 12/21/2021, Additional history exists DTaP/Tdap/Td Vaccine (2 - Td or Tdap) 02/13/2032 02/12/2022 Pneumococcal vaccine 65+ Completed 01/11/2020, 09/2018 Procedures Procedure Name Priority Date/Time Associated Diagnosis Comments XR CHEST PA LATERAL 2 VIEWS Schedule ROSELYN, Read ROSELYN (Appt Today, Awaiting Results) 12/03/2024 9:56 AM CDT Acute cough POCT URINALYSIS DIPSTICK Routine 11/15/2024 10:38 AM CDT Acute cystitis with hematuria URINE CULTURE Routine 11/15/2024 9:02 AM CDT Acute cystitis with hematuria from Last 3 Months Results * XR Chest PA Lateral 2 Views (12/03/2024 9:56 AM CDT) Anatomical Region Laterality Modality Body, Chest N/A Digital Radiogra phy 12/03/2024 11:0 4 AM CDT Narrative 12/03/2024 11:06 AM CDT EXAM DESCRIPTION: XR CHEST PA LATERAL 2 VIEWS REASON FOR STUDY: cough Pt complains of cough x 2 weeks. Former smoker quit 15 years ago. No chest surgery. No asthma,copd,cancer,heart disease. TECHNIQUE: PA and lateral radiographic view(s) of the chest. COMPARISON: None FINDINGS: LUNGS: Mild coarsening of interstitial markings in the lungs. No consolidation, effusion or pneumothorax. There is a nodular focus in the lateral aspect of the left upper hemithorax superimposed over the 5th intercostal space. HEART/MEDIASTINUM: Cardiac silhouette and mediastinal contours are within normal limits. LINES/TUBES: None. BONES: Osteoarthritis of the shoulders. Thoracic spondylosis. IMPRESSION: Mild coarsening of interstitial markings in the lungs. No discrete consolidation, effusion or pneumothorax. Subtle nodular opacity projecting in the left posterior 5th intercostal space, indeterminate. CT is recommended for further evaluation. THIS IS AN ELECTRONICALLY VERIFIED FINAL REPORT 12/03/2024 11:06 AM - Electronically signed by Christel Rivera M.D. TW T: Report ID: [id number] Reading Location: [id number] Procedure Note Christel Rivera MD - 12/03/2024 EXAM DESCRIPTION: XR CHEST PA LATERAL 2 VIEWS REASON FOR STUDY: cough Pt complains of cough x 2 weeks. Former smoker quit 15 years ago. No chest surgery. No asthma,copd,cancer,heart disease. TECHNIQUE: PA and lateral radiographic view(s) of the chest. COMPARISON: None FINDINGS: LUNGS: Mild coarsening of interstitial markings in the lungs.No consolidation, effusion or pneumothorax. There is a nodular focus in the lateral aspect of the left upper hemithorax superimposed over the 5th intercostal space. HEART/MEDIASTINUM: Cardiac silhouette and mediastinal contours are within normal limits. LINES/TUBES: None. BONES: Osteoarthritis of the shoulders. Thoracic spondylosis. IMPRESSION: Mild coarsening of interstitial markings in the lungs. No discrete consolidation, effusion or pneumothorax. Subtle nodular opacity projecting in the left posterior 5th intercostalspace, indeterminate. CT is recommended for further evaluation. THIS IS AN ELECTRONICALLY VERIFIED FINAL REPORT 12/03/2024 11:06 AM - Electronically signed by Christel Rivera M.D. TW T: Report ID: [id number] Reading Location: [place] [address] Christina Ambrose CLINICAL PROGRAM MANAGER IMG XR PROCEDURES Final Result * (ABNORMAL) POCT urinalysis dipstick (11/15/2024 10:38 AM CDT) Color, Urine, POC Light Yellow Clarity, ur, POC Clear Clear Glucose, ur, POC Negative Negative Bilirubin, ur, POC Negative Negative Ketones, ur, POC Negative Negative Specific [place], POC 1.015 1.003 - 1.030 Blood, ur, POC Moderate(A) Negative pH, ur, POC 7.0 5.0 - 8.0 Protein, ur, POC Negative Negative Urobilinogen, urine, POC 0.2 0.2 - 1.0 mg/dL Nitrite, ur, POC Negative Negative Leukocytes, ur, POC Small(A) Negative Lot Number [id number] Urine 11/15/2024 10:3 8 AM CDT Lilia HARTMAN POINT OF CARE TEST ORDER TIFFANY Final Result * Urine culture Urine, clean voided (11/15/2024 9:02 AM CDT) Report Final Report: Less than 100,000 colonies/mL (clinically insignificant growth based on current clinical standards) Comment:Testing performed by : [facility], [address] [facility], [place]., [address] Organism (CLINICALLY INSIGNIFICANT GROWTH [facility] Urine, clean voided 11/15/2024 9:02 AM CDT 11/16/2024 1:11 AM CDT Narrative [facility] - 11/17/2024 8:27 AM CDT Testing performed by [facility] ([phone]) us Lilia HARTMAN LAB MICROBIOLOGY - GENER AL ORDERABLES Final Result [facility] [id number] [address] Department [place] [address] from Last 3 Months Insurance [facility] Care Teams Accounts Payable Accountant Relationship Specialty Start Date End Date Unknown, Notinfile PCP - General 11/15/24 Unknown, Notinfile 11/15/24
[2025-01-08 10:04] VITALS: BP 150/66; PULSE 109; RESP 16; TEMP 37.1; O2SAT 97
[2025-01-08] MEDS: LACTATED RINGERS 1,000 ML 150 ML IV CONT (10:12)
--- NOTE | 2025-01-08 10:16 | WPDANESEPPF ---
Anes - Initial Pre Proc Eval Procedure: Operation Date: 01/08/25 11:30 Proposed Procedures p Screening Colonoscopy - Ranjit Rice MD Date/Time: 01/08/25 10:16 Surgeon: Ranjit Rice MD Pre Op Diagnosis: Personal history of colon polyps, unspecified Patient Data Age: 74 Gender: F Height: 1.55 m Weight: 59.9 kg Last Vital Signs Temp 37.1 C 01/08/25 10:04 Pulse 109 H 01/08/25 10:04 Resp 16 01/08/25 10:04 BP 150/66 H 01/08/25 10:04 Pulse Ox 97 01/08/25 10:04 O2 Del Method Room Air 01/08/25 10:04 Allergies Allergy/AdvReac Type Severity Reaction Status Date / Time No Known Drug Allergies Allergy Unknown Unknown Verified 01/08/25 10:03 Home Medications ?Medication ?Instructions ?Recorded ?Confirmed ?Type vitamin K2 (MK-4) 100 mcg tablet 100 mcg PO DAILY 02/12/22 01/08/25 History zoledronic acid 5 mg/100 mL in See Rx Instructions IV ONCE 05/09/23 12/28/24 Rx mannitol 5 %-water intravenous piggybck (Reclast) escitalopram oxalate 10 mg tablet 10 mg PO DAILY #90 tabs 02/21/24 01/08/25 Rx levothyroxine 75 mcg tablet 75 mcg PO DAILY #90 tabs 02/21/24 01/08/25 Rx Patient hx anesthesia problems: none Family hx anesthesia problems: none Results Review: All pre-operative results and documents have been reviewed as part of the pre-operative evaluation. [facility] Past Medical History Medical History Hyperlipidemia Hypervitaminosis D History of smoking 30 or more pack years Pleurisy Diverticulitis Hypothyroid Anxiety Depression Osteoporosis Former smoker, stopped smoking in distant past Polio Surgical History Surgical History H/O total hysterectomy Family History Family History Father Family history of cardiovascular disease Family history of chronic obstructive pulmonary disease Family history of heart disease in male family member before age 55 Mother Cerebrovascular accident Sibling Depression Family history of alcoholism Social History Social History Years smoked: 35 Smoking status: Former smoker Tobacco type: cigarettes Smoking end date: 03/11/12 Alcohol intake: current Alcohol use details: rarely Lack of Transportation: No Lack of Food: Never True Current Housing: I Have Housing Concerned About Future Housing: No Difficulty Paying Gas/Electric Bills: No Difficulty Paying for Meds: No Currently Unemployed: No Education: High School Diploma/GED Difficulty w/ Childcare or Family Care: No Living arrangements: alone Anes - Eval Final PreProcedure Day of Procedure 01/08/25 10:16 Patient weight: normal Heart: regular rate and rhythm Lungs: clear to auscultation Airway: Mallampati scale class II Neurological: alert and oriented Last oral intake: >/= 8 hours ASA classification: II Emergent: no Anesthetic plan: proceed Anesthesia type and monitoring: general GIVS and standard monitoring Results Review: All pre-operative results and documents have been reviewed as part of the pre-operative evaluation. Informed Consent: The patient's anesthetic plan and its attendant risks and benefits were discussed with the patient/family/POA. Questions were solicited and answers provided to the satisfaction of the patient/family/POA.
--- NOTE | 2025-01-08 10:40 | PM.HPGS ---
History of Present Illness History of Present Illness Consent: Risks, benefits, and alternatives have been discussed and questions answered. Patient agrees to proceed with procedure. Chief complaint: Personal history of colon polyps, unspecified Narrative: Mona Dennis is a 74 year old female with colon polyp in 2019 Review of Systems Review of Systems: All systems reviewed & are unremarkable except as noted in HPI and below PMFSH Past Medical History Medical History (Updated 01/08/25 @ 10:41 by Ranjit Rice MD) Colon polyp Hyperlipidemia Hypervitaminosis D History of smoking 30 or more pack years Pleurisy Diverticulitis Hypothyroid Anxiety Depression Osteoporosis Former smoker, stopped smoking in distant past Polio Surgical History Surgical History H/O total hysterectomy Family History Family History Father Family history of cardiovascular disease Family history of chronic obstructive pulmonary disease Family history of heart disease in male family member before age 55 Mother Cerebrovascular accident Sibling Depression Family history of alcoholism Social History Social History Years smoked: 35 Smoking status: Former smoker Tobacco type: cigarettes Smoking end date: 03/11/12 Alcohol intake: current Alcohol use details: rarely Lack of Transportation: No Lack of Food: Never True Current Housing: I Have Housing Concerned About Future Housing: No Difficulty Paying Gas/Electric Bills: No Difficulty Paying for Meds: No Currently Unemployed: No Education: High School Diploma/GED Difficulty w/ Childcare or Family Care: No Living arrangements: alone Meds Home Medications and Allergies Home Medications ?Medication ?Instructions ?Recorded ?Confirmed ?Type vitamin K2 (MK-4) 100 mcg tablet 100 mcg PO DAILY 02/12/22 01/08/25 History zoledronic acid 5 mg/100 mL in See Rx Instructions IV ONCE 05/09/23 12/28/24 Rx mannitol 5 %-water intravenous piggybck (Reclast) escitalopram oxalate 10 mg tablet 10 mg PO DAILY #90 tabs 02/21/24 01/08/25 Rx levothyroxine 75 mcg tablet 75 mcg PO DAILY #90 tabs 02/21/24 01/08/25 Rx Allergies Allergy/AdvReac Type Severity Reaction Status Date / Time No Known Drug Allergies Allergy Unknown Unknown Verified 01/08/25 10:03 Vital Signs Vital Signs - 24 hr 01/08/25 10:04 Temperature 98.8 F Pulse Rate 109 H Respiratory Rate 16 Blood Pressure 150/66 H Pulse Oximetry 97 Oxygen Delivery Room Air Exam Const: General: comfortable and no acute distress HENMT: Face/Nose/Sinus: Normal nares present Eyes: General: appearance normal, both eyes and all related structures Neck: Neck: no JVD Resp: Auscultation: clear to auscultation bilaterally Cardio: Rate: regular rate Rhythm: regular rhythm GI: Inspection: non-distended GI Palp: Yes Soft to palpation Skin: General skin exam: normal color Extrem: General: normal to inspection Psych: Mental Status: mental status grossly normal Assessment and Plan Assessment and plan (1) Colon polyp: Code(s): K63.5 - Polyp of colon Status: Acute Assessment and Plan: colonoscopy
[2025-01-08 10:57] VITALS: BP 68/42; PULSE 88; RESP 15; O2SAT 97
[2025-01-08 11:07] VITALS: BP 87/57; PULSE 82; RESP 15; O2SAT 95
[2025-01-08 11:17] VITALS: BP 122/76; O2SAT 100
[2025-01-08 11:26] VITALS: BP 133/66; PULSE 72; RESP 17; O2SAT 99
== END 2025-01-08 11:48 | disposition home or self-care (01) ==
PROVIDERS: PCP Internal Medicine; Referring Provider Nurse Practitioner; Visit Provider Internal Medicine Gastroenterology
PROC: 0DJD8ZZ Inspection of Lower Intestinal Tract, Via Natural or Artificial Opening Endoscopic (ICD-10-PCS; CPT 45378; principal; 2025-01-08 11:30)
DX: Z12.11 Encounter for screening for malignant neoplasm of colon (principal); K64.8 Other hemorrhoids; K57.30 Diverticulosis of large intestine without perforation or abscess without bleeding; E78.5 Hyperlipidemia, unspecified; E67.3 Hypervitaminosis D; E03.9 Hypothyroidism, unspecified; M81.0 Age-related osteoporosis without current pathological fracture; F41.9 Anxiety disorder, unspecified; F32.A Depression, unspecified; Z98.890 Other specified postprocedural states; Z87.891 Personal history of nicotine dependence; Z86.0100 Personal history of colon polyps, unspecified; Z87.19 Personal history of other diseases of the digestive system; Z82.49 Family history of ischemic heart disease and other diseases of the circulatory system
CPT/HCPCS: G0105; J2003; J2704; J7120

== ENCOUNTER 2025-02-17 09:52 | Outpatient (CLI) | payer MEDICARE, SELFPAY ==
[2025-02-17 13:11] LABS: Hematocrit 48.0 % (37.0-47.0); Hemoglobin 15.2 g/dL (12.0-15.0); Immature Granulocyte Percent A 0.2 % (0-0.5); Lymphocytes Absolute Auto 1.52 K/mm3 (0.9-3.2); Mean Corpuscular HGB Conc 31.7 g/dl (32-36); Mean Corpuscular Hemoglobin 30.3 pg (26-34); Mean Corpuscular Volume 95.8 fl (80-100); Nucleated Red Blood Cells Absolute Auto 0.000 K/mm3 (0.0-0.012); Nucleated Red Blood Cells Perc 0.0 % (0.0-0.2); Platelet Count Result 323 k/mm3 (150-375); Red Blood Count 5.01 M/mm3 (4.2-5.4); White Blood Count 8.8 K/mm3 (4.5-10.0)
[2025-02-17 13:43] LABS: Alanine Aminotransferase 25 U/L (6-35); Albumin Level 4.6 g/dL (3.5-5.1); Alkaline Phosphatase 58 U/L (38-126); Anion Gap 8 mmol/L (4-12); Aspartate Amino Transferase 34 U/L (14-36); Bilirubin,Total 0.6 mg/dL (0.2-1.3); Blood Urea Nitrogen 17 mg/dL (7-17); Calcium 9.7 mg/dL (8.4-10.2); Carbon Dioxide 28 mmol/L (22-30); Chloride 106 mmol/L (98-107); Cholesterol 192 mg/dL (0-200); Estimated Glomerular Filt Rate > 60; Glucose 105 mg/dL (65-110); HDL Direct 60 mg/dL; Potassium 4.5 mmol/L (3.4-5.0); Sodium 142 mmol/L (137-145); Total Protein 8.0 g/dL (6.3-8.2); Triglycerides 167 mg/dL (<150)
[2025-02-17 14:44] LABS: Thyroid Stimulating Hormone 2.140 uIU/mL (0.465-4.680)
== END 2025-02-17 09:53 | disposition home or self-care (01) ==
LOC: ANHGOSHLAB 09:53
PROVIDERS: PCP Internal Medicine; Visit Provider Nurse Practitioner
DX: E78.2 Mixed hyperlipidemia (principal); E03.9 Hypothyroidism, unspecified; E67.3 Hypervitaminosis D; Z13.29 Encounter for screening for other suspected endocrine disorder
CPT/HCPCS: 36415; 80053; 80061; 82306; 84443; 85025